=== PATIENT | male | born 1955 | race Caucasian/White ===

== ENCOUNTER → 2017-08-30 | Outpatient (CLI) | payer MEDICARE, OTHER ==
[2017-08-30 13:40] LABS: Blood Urea Nitrogen 15 mg/dL (9-20)
== END | disposition home or self-care (01) ==
LOC: LABWHC1 12:39
PROVIDERS: ATTEND Urology
DX: N28.1 Cyst of kidney, acquired (principal)
CPT/HCPCS: 36415; 82565; 84520

== ENCOUNTER → 2017-08-31 | Outpatient (CLI) | payer MEDICARE, OTHER ==
--- NOTE | 2017-09-01 15:55 | MR ---
EXAMINATION TYPE: MR kidney wo/w con DATE OF EXAM: 08/31/2017 COMPARISON: Outside ultrasound dated 08/02/[address] dated 07/25/2017 submitted from [facility] HISTORY: Atypical left renal cyst CONTRAST: Standard multiplanar, multisequence MRI departmental protocol utilizing 7.5 mL intravenous Gadavist g adolinium contrast. FINDINGS: There are multiple bilateral renal cysts which appear to have a simple appearance with the exception of a large cyst on the right measuring 5 x 4.5 x 5 cm containing internal septation but no mural nodu larity. Findings compatible with Bosniak classification 2 cyst. There are no enhancing suspicious masses of the kidneys. Aorta of normal caliber. Pancreas, gallbladder, adrenal glands and spleen have a normal appearance. T here is a simple appearing cyst in the posterior segment of the right lobe of the liver. No free fluid. Bowel gas pattern nonspecific. Aorta of normal caliber. IMPRESSION: Simple bilateral renal cysts with one cyst contain internal septation on the right as discussed above compatible with a Bosniak classification 2 cyst. No solid masses or suspicious enhancing lesions.
== END | disposition home or self-care (01) ==
LOC: RADMRIMAIN 17:00
PROVIDERS: ATTEND Urology
DX: N28.1 Cyst of kidney, acquired (principal)
CPT/HCPCS: 74183; A9581

== ENCOUNTER → 2018-03-09 | Outpatient (CLI) | payer MEDICARE, OTHER ==
--- NOTE | 2018-03-09 13:06 | MR ---
EXAMINATION TYPE: MR kidney wo/w con DATE OF EXAM: 03/09/2018 COMPARISON: Outside CT abdomen and pelvis July 25, 2017. Outside renal ultrasound August 02, 2017 Prio r MRI kidney 02/10/2018. HISTORY: N28.1 Cyst of kidney, acquired CONTRAST: Standard multiplanar, multisequence MRI departmental protocol utilizing 7.5 mL intravenous Gadavist g adolinium contrast. Imaging is performed of the abdomen focusing on bilateral kidneys. FINDINGS: RENAL: There is redemonstration of stable appearing cysts scattered mid to lower pole level right kid [place]. Similar to prior studies there is partially exophytic lateral lower pole cyst or cystic lesion r ight kidney measuring 5.0 x 4.6 cm transversely axial image 17 x 5.1 cm craniocaudal dimension baca l image 23 that shows some thin septi along the right lateral margin without suspicious nodularity or nodular enhancement. No significant change in size or appearance from prior studies is identified. T here are 2 simple appearing cysts scattered throughout the left kidney. No new suspicious mass or hyd ronephrosis is present bilaterally. OTHER: Lung bases are grossly clear. There is stable small 1.2 cm slightly lobulated thin-walled cyst posterior segment right hepatic lobe axial image 31. Gallbladder is contracted. Spleen, pancreas, an d both adrenal glands are felt within normal limits. No suspicious bowel dilatation is seen. No declan rning abdominal fluid collection is noted. Visualized osseous structures redemonstrate narrowing with spurring and endplate changes L5-S1 level. 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 No concerning solid or cystic renal masses are identified.
== END | disposition home or self-care (01) ==
LOC: RADMRIMAIN 09:38
PROVIDERS: ATTEND Urology
DX: N28.1 Cyst of kidney, acquired (principal)
CPT/HCPCS: 82565; 74183; 36415; A9585